=== PATIENT | female | born 1980 | race Caucasian/White ===

== ENCOUNTER 2018-01-23 03:20 | Emergency (ER) | payer BC, OTHER ==
[~2018-01-23] VITALS: Ht 157.5 cm; Wt 54.4 kg
[2018-01-23 03:26] VITALS: BP 145/68
[2018-01-23] MEDS ORDERED: diphenhydrAMINE HCL 25 MG CAPSULE ONE (03:46)
[2018-01-23] MEDS ORDERED: diphenhydrAMINE HCL 25 MG CAPSULE PO ONE (04:00)
== END 2018-01-23 03:53 | disposition home or self-care (01) ==
LOC: ER 03:21
DX: R21 Rash and other nonspecific skin eruption (principal); L29.8 Other pruritus; E03.9 Hypothyroidism, unspecified; F17.200 Nicotine dependence, unspecified, uncomplicated
CPT/HCPCS: A4606; Q0163; Z7610

== ENCOUNTER 2019-07-25 15:28 | Emergency (ER) | payer BC ==
[~2019-07-25] VITALS: Ht 157.5 cm; Wt 54.4 kg
[2019-07-25 15:39] VITALS: BP 119/66
== END 2019-07-25 16:33 | disposition home or self-care (01) ==
LOC: ER 15:28
DX: A49.02 Methicillin resistant Staphylococcus aureus infection, unspecified site (principal); F17.200 Nicotine dependence, unspecified, uncomplicated; E03.9 Hypothyroidism, unspecified

== ENCOUNTER 2019-08-12 | Emergency (ER) | payer BC ==
[~2019-08-12] VITALS: Ht 157.5 cm; Wt 54.4 kg
--- NOTE | 2019-08-12 00:59 | NUR ---
PT AAOX4. AMBULATORY. PT C/O CHRONIC R HIP MRSA, ABD PAIN WITH EMERALD GREEN STOOL, FEVER, CHILLS. PT STATED SHE HAS BEEN HAVING ABD PAIN AND DARK GREEN STOOL. RR EVEN AND UNLABORED. NO ACUTE DISTRESS NOTED. WILL CONTINUE TO MONITOR.
--- NOTE | 2019-08-12 01:10 | NUR ---
Patient is resting comfortably in bed. Easily aroused.
--- NOTE | 2019-08-12 01:10 | NUR ---
MAID HOUSEKEEPER AT BEDSIDE FOR LAB COLLECTION
[2019-08-12 01:17] LABS: BASOPHILS % (AUTO) 0.5 % (0.0-2.0); EOSINOPHILS % (AUTO) 0.6 % (0.0-6.0); HEMATOCRIT 37 % (33-45); HEMOGLOBIN 12.6 g/dL (11.5-14.8); LYMPHOCYTES # (AUTO) 1.9 /CMM (0.8-4.8); LYMPHOCYTES % (AUTO) 22.8 % (20.0-44.0); MEAN CORPUSCULAR HGB CONC 34 g/dl (31.0-36.0); MEAN CORPUSCULAR VOLUME 94 fL (82-100); MONOCYTES # (AUTO) 0.9 /CMM (0.1-1.30); MONOCYTES % (AUTO) 10.3 % (2.0-12.0); NEUTROPHILS # (AUTO) 5.6 /CMM (1.8-8.9); NEUTROPHILS % (AUTO) 65.8 % (43.0-81.0); PLATELET COUNT (AUTO) 289 /CMM (150-450); RED BLOOD CELL COUNT(AUTO) 3.94 MIL/uL (4.0-5.2); WHITE BLOOD COUNT (AUTO) 8.5 K/uL (4.3-11.0)
[2019-08-12 01:29] LABS: CALCIUM, SERUM 9.1 mg/dL (8.5-10.1); CREATININE 0.8 mg/dL (0.6-1.3); POTASSIUM 3.4 mmol/L (3.5-5.1)
[2019-08-12 01:33] LABS: ALBUMIN 4.2 g/dL (3.4-5.0); BILIRUBIN,DIRECT 0.1 mg/dL (0.0-0.2); BILIRUBIN,TOTAL 0.3 mg/dL (0.2-1.0); TOTAL PROTEIN, SERUM 7.6 g/dL (6.4-8.2)
[2019-08-12] MEDS ORDERED: CT SWABBABLE VALVE TRANS SET 1 EA INFUS.SET MC ONE (01:46)
[2019-08-12] MEDS ORDERED: IV NS 0.9% 250 ML IV ONE (01:46)
[2019-08-12] MEDS ORDERED: IOHEXOL-300 100 ML VIAL IV ONE (01:46)
--- NOTE | 2019-08-12 01:58 | NUR ---
URINE COLLECTED AND SENT TO LAB
--- NOTE | 2019-08-12 02:39 | NUR ---
URINE SENT TO LAB
--- NOTE | 2019-08-12 03:00 | NUR ---
PT BROUGHT TO CT
--- NOTE | 2019-08-12 03:16 | NUR ---
PT BROUGHT BACK FROM CT
--- NOTE | 2019-08-12 04:10 | NUR ---
Patient is resting comfortably in bed. Easily aroused.
--- NOTE | 2019-08-12 05:19 | NUR ---
Patient is resting comfortably in bed with eyes closed. Easily aroused. VSS. Blankets provided to pt.
--- NOTE | 2019-08-12 05:32 | NUR ---
Patient discharged to home in stable condition. Written and verbal after care instructions given. Patient verbalizes understanding of instruction and RX. IV removed. Catheter intact and site benign. Pressure and 4x4 applied to site. No bleeding noted. pt ambulatory with a steady gait.
[2019-08-12 05:33] VITALS: BP 106/62
== END 2019-08-12 05:30 | disposition home or self-care (01) ==
LOC: ER 00:04
DX: K25.9 Gastric ulcer, unspecified as acute or chronic, without hemorrhage or perforation (principal); E06.3 Autoimmune thyroiditis; E03.9 Hypothyroidism, unspecified; F11.10 Opioid abuse, uncomplicated; F10.10 Alcohol abuse, uncomplicated; F17.200 Nicotine dependence, unspecified, uncomplicated; Y90.9 Presence of alcohol in blood, level not specified
CPT/HCPCS: 36415; 74177; 80048; 80076; 84703; 85025; 99284; J7050; Q9967

== ENCOUNTER 2021-05-18 19:22 | Inpatient (IN) | payer BC ==
[~2021-05-18] VITALS: Ht 157.5 cm; Wt 55.3 kg
--- NOTE | 2021-05-18 19:30 | NUR ---
Note micahone in EDM - 05/18/21 at 2339 by ALEX pT BIBRA C/O NAUSEA AND SOB S/P IV TX. PT AAOX4 BREATHING EVENLY AND UNLABORED. PT ATTACHED TO MONITOR AND POX. MD AT BEDSIDE. SKIN IS WARM AND DRY. PER PT, SHE FELT LIGHT HEADED AND SWEATY AFTER HER PROCEDURE. PT GIVEN BLANKET AND CALL LIGHT WTIHIN REACH
--- NOTE | 2021-05-18 19:30 | NUR ---
pT BIBRA C/O NAUSEA AND SOB S/P IVF TX. PT AAOX4 BREATHING EVENLY AND UNLABORED. PT ATTACHED TO MONITOR AND POX. MD AT BEDSIDE. SKIN IS WARM AND DRY. PER PT, SHE FELT LIGHT HEADED AND SWEATY AFTER HER PROCEDURE. PT GIVEN BLANKET AND CALL LIGHT WTIHIN REACH
--- NOTE | 2021-05-18 19:40 | NUR ---
PT PROVIDED WITH WARM BLANKETS.
[2021-05-18] MEDS ORDERED: IV NS 0.9% 1,000 ML BAG IV ONE (20:00)
[2021-05-18 20:02] LABS: BASOPHILS % (AUTO) 0.3 % (0.0-2.0); EOSINOPHILS % (AUTO) 0.3 % (0.0-6.0); HEMATOCRIT 28 % (33-45); HEMOGLOBIN 9.5 g/dL (11.5-14.8); LYMPHOCYTES # (AUTO) 1.4 K/uL (0.8-4.8); LYMPHOCYTES % (AUTO) 13.7 % (20.0-44.0); MEAN CORPUSCULAR HGB CONC 34 g/dl (31.0-36.0); MEAN CORPUSCULAR VOLUME 93 fL (82-100); MONOCYTES # (AUTO) 0.6 K/uL (0.1-1.30); MONOCYTES % (AUTO) 5.6 % (2.0-12.0); NEUTROPHILS # (AUTO) 8.3 K/uL (1.8-8.9); NEUTROPHILS % (AUTO) 80.1 % (43.0-81.0); PLATELET COUNT (AUTO) 308 K/uL (150-450); WHITE BLOOD COUNT (AUTO) 10.3 K/uL (4.3-11.0)
[2021-05-18 20:22] LABS: CREATININE 0.8 mg/dL (0.6-1.3); POTASSIUM 4.1 mmol/L (3.5-5.1)
[2021-05-18 20:28] LABS: ALBUMIN 3.2 g/dL (3.4-5.0); BILIRUBIN,DIRECT 0.1 mg/dL (0.0-0.2); BILIRUBIN,TOTAL 0.2 mg/dL (0.2-1.0); TOTAL PROTEIN, SERUM 6.3 g/dL (6.4-8.2)
--- NOTE | 2021-05-18 21:41 | NUR ---
GOSIA WAS PAGED. WILL CALL BACK.
[2021-05-18] MEDS ORDERED: CT SWABBABLE VALVE TRANS SET 1 EA INFUS.SET MC ONE (21:44)
[2021-05-18] MEDS ORDERED: IV NS 0.9% 250 ML IV ONE (21:44)
[2021-05-18] MEDS ORDERED: IOHEXOL-350 100 ML VIAL IV ONE ×3 (21:44→22:07)
--- NOTE | 2021-05-18 21:44 | NUR ---
ON THE PHONE WITH GASPER REGARDING BED 9.
--- NOTE | 2021-05-18 21:47 | NUR ---
MOVE SHEET SUBMITTED AND CALLED FOR BED.
--- NOTE | 2021-05-18 22:02 | NUR ---
DR. ELISE SPEAKING WITH DR. LITTLE.
--- NOTE | 2021-05-18 23:00 | NUR ---
MRSA SWAB COLLECTED AND SENT TO LAB. PATIENT'S BELONGINGS LIST DONE.
--- NOTE | 2021-05-18 23:03 | NUR ---
PT GOING TO 120-2 PER RN MINE SHIFTER.
[2021-05-18 23:04] LABS: BASOPHILS % (AUTO) 0.1 % (0.0-2.0); EOSINOPHILS % (AUTO) 0.1 % (0.0-6.0); HEMATOCRIT 26 % (33-45); HEMOGLOBIN 8.7 g/dL (11.5-14.8); LYMPHOCYTES # (AUTO) 1.1 K/uL (0.8-4.8); LYMPHOCYTES % (AUTO) 8.9 % (20.0-44.0); MEAN CORPUSCULAR HGB CONC 34 g/dl (31.0-36.0); MEAN CORPUSCULAR VOLUME 92 fL (82-100); MONOCYTES # (AUTO) 0.7 K/uL (0.1-1.30); MONOCYTES % (AUTO) 5.8 % (2.0-12.0); NEUTROPHILS # (AUTO) 10.2 K/uL (1.8-8.9); NEUTROPHILS % (AUTO) 85.1 % (43.0-81.0); PLATELET COUNT (AUTO) 268 K/uL (150-450); RED BLOOD CELL COUNT(AUTO) 2.77 MIL/uL (4.0-5.2)
--- NOTE | 2021-05-18 23:20 | NUR ---
called vivian to have images read
[2021-05-18 23:22] LABS: LYMPHOCYTES % (MANUAL) 9 % (16-48); MONOCYTES % (MANUAL) 6 % (0-11.0); NEUTROPHILS % (MANUAL) 85 (42-76)
[2021-05-18] MEDS ORDERED: ZOLPIDEM TARTRATE 5 MG TABLET PO PRN (23:30)
[2021-05-18] MEDS ORDERED: Z GUARD REMEDY 2 OZ OINT TP PRN (23:30)
[2021-05-18] MEDS ORDERED: MAG HYDROX/AL HYDROX/SIMETH 30 ML UDC PO PRN (23:30)
[2021-05-18] MEDS ORDERED: ONDANSETRON HCL/PF 4 MG/2 ML VIAL IVP PRN (23:30)
[2021-05-18] MEDS ORDERED: ACETAMINOPHEN 325 MG TABLET PO PRN (23:30)
[2021-05-18] MEDS ORDERED: MAGNESIUM HYDROXIDE 30 ML UDC PO PRN (23:30)
--- NOTE | 2021-05-18 23:39 | NUR ---
gave report to serg Fofana for lauren
--- NOTE | 2021-05-18 23:42 | NUR ---
called lab for covid swab
--- NOTE | 2021-05-18 23:50 | NUR ---
covid swab sent to lab
--- NOTE | 2021-05-19 00:22 | NUR ---
Patient does not wish to proceed with medical care recommended by Dr. Garcia. Patient given information related to possible complications, up to and including , which could occur as a result of leaving the hospital at this time. Patient verbalizes understanding of risks involved due to leaving against medical advice. Patient has signed AMA form.
[2021-05-19 01:05] VITALS: BP 128/61
== END 2021-05-19 01:38 | disposition left against medical advice (07) | DRG 919 ==
LOC: ER 19:24 → MEDSG1 19:30 → TELE-TD 23:06 → UNDOADMIN 23:06 → ER 05-19 00:22 → UNDOADMIN 05-19 23:03 → MEDSG1 05-19 23:03 → UNDODISIN 05-20 01:30
PROVIDERS: ADMIT Family Medicine; ATTEND Family Medicine
DX: N99.61 Intraoperative hemorrhage and hematoma of a genitourinary system organ or structure complicating a genitourinary system procedure (principal); K66.1 Hemoperitoneum; E44.1 Mild protein-calorie malnutrition; D62 Acute posthemorrhagic anemia; Z22.322 Carrier or suspected carrier of Methicillin resistant Staphylococcus aureus; E03.9 Hypothyroidism, unspecified; D64.9 Anemia, unspecified; E83.51 Hypocalcemia; E88.09 Other disorders of plasma-protein metabolism, not elsewhere classified; R73.9 Hyperglycemia, unspecified; Z20.822 Contact with and (suspected) exposure to COVID-19; Y83.8 Other surgical procedures as the cause of abnormal reaction of the patient, or of later complication, without mention of misadventure at the time of the procedure; Y73.8 Miscellaneous gastroenterology and urology devices associated with adverse incidents, not elsewhere classified; Y92.89 Other specified places as the place of occurrence of the external cause; Z68.22 Body mass index [BMI] 22.0-22.9, adult
CPT/HCPCS: 36415; 71045-TC; 80048-TC; 80076-TC; 83690-TC; 85025-TC; 86850-TC; 87081-TC; G0378; J7030; J7050; Q9967